=== PATIENT | female | born 1970 | race African-American/Black ===

== ENCOUNTER 2017-02-05 04:46 | Observation (INO) | payer BC ==
[2017-01-29 17:46] LABS: BASOPHILS 0.1 %; BASOPHILS ABSOLUTE 0.01 10/3/uL (0.0-0.16); EOSINOPHILS 1.1 %; EOSINOPHILS ABSOLUTE 0.08 10/3/uL (0.0-0.53); HEMATOCRIT 37.3 % (36.0-48.0); HEMOGLOBIN 12.6 g/dL (12.0-16.0); IMMATURE GRANULOCYTES 0.3 %; IMMATURE GRANULOCYTES ABSOLUTE 0.02 10/3/uL (0.0-0.11); LYMPHOCYTES 33.7 %; LYMPHOCYTES ABSOLUTE 2.36 10/3/uL (0.67-4.30); MEAN CORPUS HGB CONC 33.8 g/dL (32.0-36.0); MEAN CORPUSCULAR HEMOGLOB 30.7 pg (26.0-34.0); MEAN PLATELET VOLUME 10.4 fL (9.2-13.0); MONOCYTES 9.1 %; MONOCYTES ABSOLUTE 0.64 10/3/uL (0.21-1.20); NEUTROPHILS 55.7 %; PLATELET COUNT 251 10/3/uL (150-400); RBC DISTRIBUTION WIDTH 12.3 % (12.0-16.0)
[2017-01-29 17:47] LABS: MANUAL DIFF NO %
[2017-01-29 18:26] LABS: BUN (BLOOD UREA NITROGEN) 7 MG/DL (6-23); CALCIUM, SERUM 8.9 MG/DL (8.5-10.4); CHLORIDE, SERUM 109 MMOL/L (96-112); CO2 (CARBON DIOXIDE) 26 MMOL/L (24-34); CREATININE 0.93 MG/DL (0.55-1.02); GFR AFRICAN AMERICAN 85 ML/MIN (>=60); GFR NON AFRICAN AMERICAN 73 ML/MIN (>=60); GLUCOSE, SERUM 97 MG/DL (60-99); POTASSIUM, SERUM 4.3 MMOL/L (3.5-5.3); SODIUM, SERUM 144 MMOL/L (135-148)
--- NOTE | ~2017-02-05 | OP ---
Record Of Operation [facility] [address] [place]. [address] NAME: RYLAN RAINES : 68 STATUS : ADM IN PAT#: [id number] AGE: 46 ADM/REG DATE : 02/05/17 MR#: [id number] REPORT SERV DATE: 02/06/17 DICTATED BY: LIZ VALDES II DATE: 02/06/17 REPORT STATUS : Draft TRANSCRIBED BY: MODL DATE: 02/06/17 DATE OF PROCEDURE: 02/05/2017 PREOPERATIVE DIAGNOSES: 1. Right lower extremity radiculopathy. 2. Multilevel significant degenerative disk disease. 3. Mild to moderate angular kyphosis, L4-5. POSTOPERATIVE DIAGNOSES: 1. Right lower extremity radiculopathy. 2. Multilevel significant degenerative disk disease. 3. Mild to moderate angular kyphosis, L4-5. PROCEDURE: 1. L4-5, L5-S1 laminectomy. 2. Use of the microscope and stereotactic spinal imaging. SURGEON: Liz Valdes M.D. FLUIDS: 1100 mL of LR. ESTIMATED BLOOD LOSS: 25 mL. DRAINS: None. COMPLICATIONS: None. IMPLANTS: None. PREOPERATIVE HISTORY: This is a very friendly 46-year-old female, who came to see me regarding her lumbar condition. She does have some discogenic back pain but predominantly complains of pain radiating into the buttock and leg. She was found to have fairly severe stenosis at L4-5. L5-S1 demonstrated a disk fragment on the right at L5-S1. We discussed the pros and cons of surgery. We discussed the pros and cons of fusion versus decompression alone. She felt that she could deal with her back pain if her leg pain would be improved. We discussed the rates of success versus failure of the surgery to do so. Risks discussed include, but are not limited to infection, abscess, CSF leak, footdrop, nerve root injury, and a small chance of stroke and . DESCRIPTION OF PROCEDURE: After informed consent was obtained, the patient was brought to the operating room at her request. We had posted her for a microdiskectomy, but overall, I felt clearly at L4-5, she would need more than simply a microdiscectomy and more of a laminectomy because of the severe stenosis and facet changes. At this point, the patient was placed in the prone position, and the back was prepped and draped in a sterile fashion. The stereotactic spinal pin was placed into the left iliac Record Of Operation [facility] [address] [place]. [address] NAME: RYLAN RAINES : 68 STATUS : ADM IN PAT#: [id number] AGE: 46 ADM/REG DATE : 02/05/17 MR#: [id number] REPORT SERV DATE: 02/06/17 DICTATED BY: LIZ VALDES II DATE: 02/06/17 REPORT STATUS : Draft TRANSCRIBED BY: JUSTIN DATE: 02/06/[address] scan completed. The stereotactic guidance was then used throughout the case. A minimally invasive incision was now performed on the right at L4-5 and L5-S1, and minimally invasive quadrant retractor placed. The microscope was now brought into place, and under microscopic visualization, the laminectomy was initiated with the high speed bur and the Kerrison rongeurs and the curettes at L5-S1. Even at L5-S1, she was found to have significant central stenosis and significant compression of her thecal sac. The dura was then well identified. There was again severe compression of the canal and the bilateral recesses. At this point, the central decompression was carried out through this unilateral approach. The S1 nerve root was then identified. There was a fragment of disc which was now removed which had been compressing the S1 nerve root. At this point, we then turned our attention to the L4-5. At this level again, we found even more severe central stenosis. The central decompression was carried out with a high-speed bur, the Kerrison rongeurs, and the curettes, and once again the bilateral decompression achieved through the unilateral approach. The dura was then well identified and decompressed centrally. The bilateral L5 nerve roots were then well decompressed. At this point, irrigation was performed and hemostasis confirmed. The standard closure was performed, and the patient was then extubated and transferred to PACU in stable condition. Later in the morning, she requested to spend the night for observation. I felt this was very reasonable and appropriate orders were given. I discussed the case with her postoperatively as well as on the floor later that day when I was making rounds. MARION/JUSTIN Liz Valdes II, M.D. / [id number] CC: Noemi Thacker II, M.D.
[~2017-02-05 04:46] MED LIST: MARI5 PO; NEUR100 PO; NORCO1 TAB PO; SKELAXIN8 PO
== END 2017-02-07 15:07 | disposition home or self-care (01) ==
LOC: SDC 04:46 → 3SO 11:09
PROVIDERS: Orthopaedic Surgery
PROC: 01NB0ZZ Release Lumbar Nerve, Open Approach (ICD-10-PCS; principal; 2017-02-05 05:45)
DX: M48.07 Spinal stenosis, lumbosacral region (principal); M51.17 Intervertebral disc disorders with radiculopathy, lumbosacral region; I10 Essential (primary) hypertension; E66.9 Obesity, unspecified; M40.209 Unspecified kyphosis, site unspecified; Z90.710 Acquired absence of both cervix and uterus
CPT/HCPCS: 80048; 85014; 85018; 85025; 88304; 88311; 93005; 96374; 96376; 97116-GP; 97161-GP; A9270-GY; G0378; J0690; J1030; J1170; J1885; J2250; J2405; J2710; J3010